=== PATIENT | female | born 1980 | race American Indian/Alaskan Native ===

== ENCOUNTER 2019-01-21 07:26 | Day surgery (SDC) | payer OTHER ==
[2019-01-21] MEDS ORDERED: LACTATED RINGERS 1,000 ML IV SCH (07:48)
[2019-01-21] MEDS ORDERED: PEPCID IV NR (08:12)
--- NOTE | 2019-01-21 08:27 | Anesthesia Consultation ---
Anesthesia Consult and Med Hx - Airway Anesthetic Teeth Evaluation: Good ROM Head & Neck: Adequate Mental/Hyoid Distance: Adequate Mallampati Class: Class II Intubation Access Assessment: Good - Pulmonary Exam CTA: Yes - Cardiac Exam Cardiac Exam: RRR - Pre-Operative Health Status ASA Pre-Surgery Classification: ASA2 Proposed Anesthetic Plan: General (Hx of asthma, smoking and GERD for GA) - Pulmonary Hx Smoking: Yes Hx Asthma: Yes (Last treated 1 year ago) - Central Nervous System Hx Psychiatric Problems: Yes - Other Systems Hx Alcohol Use: Yes (Occas) Hx Cancer: No
[2019-01-21] MEDS ORDERED: DILAUDID IV PRN (08:28)
[2019-01-21] MEDS ORDERED: ZOFRAN IV PRN (08:28)
--- NOTE | 2019-01-21 08:28 | Anesthesia Day of Surgery ---
Anesthesia Day of Surgery - Day of Surgery Patient Examined: Yes Patient H&P Reviewed: Yes Patient is NPO: Yes
--- NOTE | 2019-01-21 08:36 | Short Stay Summary ---
Short Stay Documentation Date of service: 01/21/19 Narrative H&P: 38y/o black female with undesired fertility. The patient has declined other contraceptive options. She has elected for permanent sterilization. - History Principal diagnosis: Undesired fertility Past Medical History: No medical history Past Surgical History: Other (oral surgery) Social history: single - Allergies and Medications Current Medications: Allergies SHELLFISH Adverse Reaction (Severe, Uncoded 01/21/19 08:10) Shortness of Breath SOB,ITCHING IN THROAT Home Medications Medication Instructions Recorded Confirmed Last Taken Type FLUoxetine HCL [Prozac] 20 mg PO DAILY 01/20/19 01/21/19 01/19/19 History Active Medications Famotidine (Pepcid) 20 mg IV PREOP NR Stop: 01/21/19 23:59 Hydromorphone HCl (Dilaudid) 0.5 mg IV Q10MIN PRN PRN Reason: Pain , Severe (7-10) Stop: 01/21/19 20:00 Lactated Ringer's (Lactated Ringers) 1,000 mls @ 100 mls/hr IV DIRECT HAILEY Stop: 01/21/19 23:59 Midazolam HCl (Versed) 2 mg IV PREOP NR Stop: 01/21/19 23:59 Ondansetron HCl (Zofran) 4 mg IV ONCE PRN PRN Reason: Nausea And Vomiting - Physical exam General appearance: no acute distress Integumentary: no rash HEENT: Atraumatic Lungs: Clear to auscultation Breasts: deferred Heart: Regular rate Gastrointestinal: normal Female Genitourinary: deferred Rectal Exam: deferred Extremities: no ischemia - Brief post op/procedure progress note Date of procedure: 01/21/19 Pre-op diagnosis: undesired fertility Post-op diagnosis: same Procedure: Laparoscopic bilateral tubal ligation with Filshie clips Anesthesia: GETA Surgeon: DAINA GOMES Estimated blood loss: minimal Pathology: none Condition: stable - Hospital course Hospital course: The patient was admitted the day of surgery and underwent a laparoscopic bilateral tubal ligation. Please see operative note for details of surgery. Postoperative course was uneventful. - Disposition Condition at discharge: Good Disposition: DC-01 TO HOME OR SELFCARE Short Stay Discharge Plan Activity: other (pelvic rest for 1 week) Diet: regular Additional Instructions: Follow-up is not required Follow-up as needed Prescriptions: Ibuprofen [Motrin] 800 mg PO Q8HR PRN #60 tablet PRN Reason: Pain, Mild (1-3) oxyCODONE /ACETAMINOPHEN [Percocet 5/325] 1 tab PO Q6HR PRN #20 tablet PRN Reason: Pain
[2019-01-21] MEDS ORDERED: VERSED IV NR (09:00)
[2019-01-21] MEDS ORDERED: DECADRON ONE (09:05)
[2019-01-21] MEDS ORDERED: TORADOL ONE (09:05)
[2019-01-21] MEDS ORDERED: ZEMURON IV ONE (09:05)
[2019-01-21] MEDS ORDERED: ZOFRAN ONE (09:05)
[2019-01-21] MEDS ORDERED: DIPRIVAN 10 MG/ML IV ONE (09:06)
[2019-01-21] MEDS ORDERED: SUBLIMAZE ONE (09:06)
[2019-01-21] MEDS ORDERED: MARCAINE 0.5% INFILTRATI ONE ×2 (09:30→10:05)
[2019-01-21] MEDS ORDERED: NACL 0.9% IR ONE (10:05)
[2019-01-21] MEDS ORDERED: ROBINUL ONE (10:18)
[2019-01-21] MEDS ORDERED: BLOXIVERZ ONE (10:18)
--- NOTE | 2019-01-21 10:27 | Operative Report ---
Operative Report Operative Report: Date of surgery: 01/21/2019 Preoperative diagnosis: Unwanted fertility Postoperative diagnosis: Same as above Procedure: Laparoscopic bilateral tubal ligation with Filshie clips Surgeon: Bren Montana M.D. Anesthesia: General endotracheal anesthesia Estimated blood loss: Minimal Findings: Normal uterus tubes and ovaries Indication: 38-year-old black female with undesired fertility. The patient has elected for permanent sterilization. Procedure: The patient was taken to the operating room and given general endotracheal anesthesia without complication. The patient is prepped and draped in a normal sterile fashion. A bivalve speculum was placed in the patient's vagina and a single-tooth tenaculum was placed on the anterior lip of the cervix .A uterine acorn manipulator was placed, and the bivalve speculum was then removed. Attention was then turned to the patient's abdomen where a 5 mm infraumbilical skin incision was then made. A Veress needle was placed and peritoneal entry was verified water-filled syringe. Insufflation of the peritoneal cavity was performed with CO2 gas. A 5 mm trocar was placed and the laparoscope was then inserted. The patient was then placed in Trendelenburg. A 7 mm suprapubic skin incision was then made. Under direct visualization a 7 mm trocar was then placed. General survey of the patient's abdomen revealed normal uterus tubes and ovaries. The fallopian tube was then followed out to the fimbriated end. A Filshie clip was placed, on the ampullary portion of the tube. This was performed on the contralateral side as well. The 7 mm trocar was then removed. The pneumoperitoneum was then released. The 5 mm trocar laparoscope was then removed. The skin incisions were then closed with 4-0 Monocryl. The incisions were injected with quarter percent Marcaine. Dressings were applied to the incision. The vaginal instruments were then removed atraumatically. Then successfully extubated and taken to the recovery room. All sponge laps and needle counts were correct 2.
[2019-01-21 11:17] VITALS: BP 135/68
[2019-01-21] MEDS ORDERED: PERCOCET 5/325 PO PRN (12:00)
== END 2019-01-21 11:50 | disposition home or self-care (01) ==
LOC: OR 07:26
PROVIDERS: ATTEND Obstetrics & Gynecology
DX: Z30.2 Encounter for sterilization (principal); J45.909 Unspecified asthma, uncomplicated; K21.9 Gastro-esophageal reflux disease without esophagitis; F32.9 Major depressive disorder, single episode, unspecified; F41.9 Anxiety disorder, unspecified; Z72.89 Other problems related to lifestyle; Z79.899 Other long term (current) drug therapy; Z98.890 Other specified postprocedural states
CPT/HCPCS: 58671; 81025; J1100; J1170; J1885; J2250; J2405; J2704; J2710; J3010; J7120